=== PATIENT | female | born 1985 | race Caucasian/White ===

== ENCOUNTER 2016-08-09 10:06 | Outpatient (CLI) | payer BC, OTHER | END 2016-08-09 10:07 | disposition home or self-care (01) | DX: Z36 Encounter for antenatal screening of mother (principal) ==

== ENCOUNTER 2016-09-14 10:54 | Outpatient (CLI) | payer SELFPAY | END 2016-09-14 10:55 | disposition home or self-care (01) | DX: Z36 Encounter for antenatal screening of mother (principal) ==

== ENCOUNTER 2016-11-02 12:25 | Outpatient (CLI) | payer BC, MEDICAID ==
--- NOTE | 2016-11-02 16:04 | Ultrasound Report ---
OB ULTRASOUND: 11/02/2016 CLINICAL INDICATION: anatomy. TECHNIQUE: Real-time scanning was performed with group sales representative static images obtained. LAST MENSTRUAL PERIOD 06/11/2016 Clinical Age 20 weeks 4 days US Age 19 weeks 6 days EFW Hadlock 328 g EFW% Hadlock 20% Heart Rate 148 bpm EDC 03/18/2017 US EDC 03/23/2017 BPD Hadlock 19 weeks 1 day; Mean mm 43.6 HC Hadlock 19 weeks 6 days; Mean mm 173.8 AC Hadlock 19 weeks 6 days; Mean mm 145.4 FL Hadlock 20 weeks 2 days; Mean mm 33.1 Presentation moving Placental Location posterior low Cervical Length 4.8 cm Amniotic Fluid 13.3 cm FINDINGS: There is a single viable intrauterine gestation, in variable position. heart rate is 148 BPM. The placenta is posterior, without evidence of previa. Amniotic fluid volume is normal, with an HELADIO of 13.3. By size, the fetus measures 19.9 weeks (20.6 weeks by LMP). The following anatomic structures were visualized and appear normal: The intracranial contents, including the ventricles and posterior fossa; the lips and orbits; the spine; the heart, including 4 chamber view and outflow tracts, and diaphragm; the abdominal contents, including the stomach, the bilateral kidneys, and urinary bladder, as well as a normal 3 vessel cord insertion; 4 limbs. No free fluid or adnexal lesion is appreciated. IMPRESSION: SINGLE VIABLE INTRAUTERINE GESTATION, WITH SIZE IN KEEPING WITH LMP DATING. NORMAL ANATOMIC SURVEY. MTDD
== END 2016-11-02 12:26 | disposition home or self-care (01) ==
LOC: DI 12:25
PROVIDERS: ATTEND Obstetrics & Gynecology
DX: Z34.82 Encounter for supervision of other normal pregnancy, second trimester (principal)
CPT/HCPCS: 76811

== ENCOUNTER 2016-11-25 11:35 | Emergency (ER) | payer BC, MEDICAID ==
[2016-11-25 11:53] VITALS: BP 97/66
--- NOTE | 2016-11-25 14:02 | ED Physician Documentation ---
PD HPI URI - Stated complaint Stated Complaint: COUGH - Chief complaint Chief Complaint: Resp - History obtained from History obtained from: Patient, Family - History of Present Illness Timing - onset: How many weeks ago (2) Timing duration: Weeks (2) Timing details: Gradual onset, Still present, Waxing and waning Associated symptoms: Nasal congestion, Rhinorrhea, Dry cough, Dyspnea Contributing factors: Other (22 wks ) Improves by: Medication Worsened by: Activity Similar symptoms before: Diagnosis (URI and seasonal allergic rhinitis) Recently seen: Not recently seen - Additional information Additional information: 31-year-old female with a history of seasonal allergic rhinitis is 22 weeks and has developed a cough with coughing paroxysms that are bad enough that she is wetting herself. She has been using Flonase intermittently as well as Elizabeth and Zyrtec. She has not had fever and she has not had color to her phlegm. Review of Systems Constitutional: denies: Fever, Chills Eyes: denies: Decreased vision Ears: denies: Ear pain Nose: reports: Rhinorrhea / runny nose, Congestion, Sinus pressure / pain Throat: reports: Sore throat Cardiac: denies: Chest pain / pressure, Palpitations Respiratory: reports: Dyspnea, Cough GI: reports: Vomiting (post tussive). denies: Nausea : reports: Incontinent (post tussive) Skin: denies: Rash Musculoskeletal: denies: Neck pain, Back pain Neurologic: denies: Generalized weakness, Focal weakness, Numbness PD PAST MEDICAL HISTORY - Past Medical History Past Medical History: No Cardiovascular: None Respiratory: None Neuro: None Endocrine/Autoimmune: None GI: None LITERACY TEACHER: None : None HEENT: None Psych: None Musculoskeletal: Other Derm: None - Past Surgical History Past Surgical History: Yes HEENT: Tonsil/Adenoidectomy - Present Medications Home Medications: Ambulatory Orders Medication Instructions Recorded Confirmed Amox/Clav 875/125 [Augmentin] 1 each PO Q12H #20 tablet 11/25/16 Benzonatate [Tessalon] 100 - 200 mg PO TID PRN #20 capsule 11/25/16 - Allergies Allergies/Adverse Reactions: Allergies Allergy/AdvReac Type Severity Reaction Status Date / Time erythromycin base Allergy Hives Verified 11/25/16 11:52 [Erythromycin Base] - Social History Does the pt smoke?: No Smoking Status: Never smoker Does the pt drink ETOH?: No Does the pt have substance abuse?: No - Immunizations Immunizations are current?: Yes - POLST Patient has POLST: No PD ED PE NORMAL - Vitals Vital signs reviewed: Yes (normal ) - General General: Alert and oriented X 3, No acute distress, Well developed/nourished, Other (The patient does have the erythema under the nose consistent with the allergic salute. ) - HEENT HEENT: Atraumatic, PERRL, EOMI, Moist mucous membranes, Pharynx benign, Dentition benign, Other (The right TM is mildly inflamed along the umbo and the left is clear. ) - Neck Neck: Supple, no meningeal sign, No bony TTP - Cardiac Cardiac: RRR, No murmur - Respiratory Respiratory: No respiratory distress, Clear bilaterally - Abdomen Abdomen: Soft, Non tender - Back Back: No CVA TTP, No spinal TTP - Derm Derm: Normal color, Warm and dry, No rash - Extremities Extremities: No deformity, No edema - Neuro Neuro: Alert and oriented X 3, No motor deficit, No sensory deficit, Normal speech - Psych Psych: Normal mood, Normal affect Results - Vitals Vitals: Vital Signs - 24 hr 11/25/16 11:50 Temperature 36.5 C Heart Rate 74 Respiratory 18 Rate Blood Pressure 97/66 O2 Saturation 94 Oxygen O2 Source Room air Procedures - Bedside sono Bedside sono by EMP: With use of bedside ultrasound the fetus is imaged and shows a viable fetus at 23 weeks with a heart rate of 156. PD MEDICAL DECISION MAKING - ED course Complexity details: reviewed old records, considered differential, d/w patient, d/w family ED course: 31-year-old female 22 weeks has had coughing paroxysms hard enough to cause incontinence and posttussive vomiting. She does have a long history of seasonal allergic rhinitis and she is treating herself with both antihistamine and nasal steroid she is underdosing the nasal steroid as she has previously had evidence of epistaxis. She is getting inadequate relief with the use of her medications and she appears to have a mild otitis. Here in the emergency department she is given 10 mg of dexamethasone orally we will put her on some azithromycin I discussed with her washing pollen off of her face and out of her nose as well as using her Flonase twice per day until her symptoms are controlled and can to continue to use her Elizabeth I have suggested the use of 12 hours Elizabeth versus 24 hour. For the coughing paroxysms himself which I believe are her greatest risk I have prescribed Tessalon as well. Departure - Departure Disposition: 01 Home, Self Care Clinical Impression: Seasonal allergic rhinitis Qualifiers: Allergic rhinitis trigger: pollen Qualified Code(s): J30.1 - Allergic rhinitis due to pollen Otitis media Qualifiers: Otitis media type: suppurative Laterality: right Chronicity: acute Recurrence: not specified as recurrent Spontaneous tympanic membrane rupture: without spontaneous rupture Qualified Code(s): H66.001 - Acute suppurative otitis media without spontaneous rupture of ear drum, right ear Condition: Stable Instructions: ED Ear Infec Wait See Abx Tx Ch, ED Allergy Seasonal Follow-Up: Laura Gong PA-C [Primary Care Provider] - Prescriptions: Amox/Clav 875/125 [Augmentin] 1 each PO Q12H #20 tablet Benzonatate [Tessalon] 100 - 200 mg PO TID PRN #20 capsule PRN Reason: Cough
[2016-11-25] MEDS ORDERED: DEXAMETHASONE 10 MG/ML VIAL PO STA (14:14)
[2016-11-25] MEDS ORDERED: DEXAMETHASONE 10 MG/ML VIAL ONE (14:19)
== END 2016-11-25 14:24 | disposition home or self-care (01) ==
LOC: ED 11:35
DX: O99.512 Diseases of the respiratory system complicating pregnancy, second trimester (principal); J30.1 Allergic rhinitis due to pollen; H66.001 Acute suppurative otitis media without spontaneous rupture of ear drum, right ear; Z3A.22 22 weeks gestation of pregnancy
CPT/HCPCS: 99283

== ENCOUNTER 2016-12-29 17:45 | Emergency (ER) | payer BC, MEDICAID ==
--- NOTE | 2016-12-29 18:13 | ED Physician Documentation ---
PD HPI LOWER EXT INJURY - Stated complaint Stated Complaint: L FOOT INJ - Chief complaint Chief Complaint: Ext Problem - History of Present Illness PD HPI LOW EXT INJURY LOCATION: Left, Foot Type of injury: Crush (dropped heavy item on it) Where injury occurred: Home Timing - onset: Today Worsened by: Moving Associated symptoms: No: Weakness, Numbness, Tingling - Additional information Additional information: She is , pos FM, no cramping/bleeding. Review of Systems Constitutional: denies: Fever, Chills Nose: denies: Rhinorrhea / runny nose, Congestion Cardiac: denies: Chest pain / pressure, Palpitations Respiratory: denies: Dyspnea, Cough PD PAST MEDICAL HISTORY - Past Medical History Past Medical History: No Cardiovascular: None Respiratory: None Neuro: None Endocrine/Autoimmune: None GI: None RECORDER OF DEEDS: None : None HEENT: None Psych: None Musculoskeletal: Other Derm: None - Past Surgical History Past Surgical History: Yes HEENT: Tonsil/Adenoidectomy - Present Medications Home Medications: Ambulatory Orders Medication Instructions Recorded Confirmed No Known Home Medications [No 12/29/16 12/29/16 Known Home Medications] - Allergies Allergies/Adverse Reactions: Allergies Allergy/AdvReac Type Severity Reaction Status Date / Time erythromycin base Allergy Hives Verified 12/29/16 17:50 [Erythromycin Base] - Social History Does the pt smoke?: No Smoking Status: Never smoker Does the pt drink ETOH?: No Does the pt have substance abuse?: No - Immunizations Immunizations are current?: Yes - POLST Patient has POLST: No PD ED PE NORMAL - Vitals Vital signs reviewed: Yes - General General: Alert and oriented X 3, No acute distress - Abdomen Abdomen: Non tender, Other (Gravid) - Extremities Extremities: Other (TTP Lateral foot with some ecchymosis. Good ROM.) - Neuro Neuro: Alert and oriented X 3, Normal speech Results - Vitals Vitals: Vital Signs - 24 hr 12/29/16 12/29/16 17:48 19:14 Temperature 36.0 C L Heart Rate 99 78 Respiratory 18 15 Rate Blood Pressure 107/70 108/60 O2 Saturation 100 99 Oxygen O2 Source Room air - Rads (name of study) L foot 3v Radiology: EMP read contemporaneously (NAD) Departure - Departure Disposition: 01 Home, Self Care Clinical Impression: Contusion of left foot Qualifiers: Encounter type: initial encounter Qualified Code(s): S90.32XA - Contusion of left foot, initial encounter Condition: Good Record reviewed to determine appropriate education?: Yes Instructions: ED Contusion Lower Extr Ch Comments: Recheck with your physician if not improved in the week. Discharge Date/Time: 12/29/16 19:14
--- NOTE | 2016-12-29 18:57 | XRAY Preliminary Report ---
Exam: XR Foot 3 View LT IMPRESSION: Normal foot radiography. [facility] SITE ID: [id number]
--- NOTE | 2016-12-29 18:59 | XRAY Report ---
EXAM: LEFT FOOT RADIOGRAPHY EXAM DATE: 12/29/2016 06:35 PM. CLINICAL HISTORY: -shield abd. Foot inj. COMPARISON: None. TECHNIQUE: 3 views. FINDINGS: Bones: Normal. No fractures or bone lesions. Joints: Normal. No subluxations. Soft Tissues: Normal. No soft tissue swelling. IMPRESSION: Normal foot radiography. [facility] Referring Provider Line: [phone] SITE ID: [id number]
[2016-12-29 19:15] VITALS: BP 108/60
== END 2016-12-29 19:14 | disposition home or self-care (01) ==
LOC: ED 17:45
DX: S90.32XA Contusion of left foot, initial encounter (principal); W20.8XXA Other cause of strike by thrown, projected or falling object, initial encounter; Y92.019 Unspecified place in single-family (private) house as the place of occurrence of the external cause; Z34.90 Encounter for supervision of normal pregnancy, unspecified, unspecified trimester
CPT/HCPCS: 99283

== ENCOUNTER 2017-01-08 07:24 | Outpatient (CLI) | payer BC, MEDICAID ==
[2017-01-08 10:07] LABS: HCT - HEMATOCRIT 34.1 % (37.0-47.0); HGB - HEMOGLOBIN 11.6 g/dL (12.0-16.0); MEAN CORPUSCULAR HEMOGLOBIN 31.2 pg (27.0-31.0); MEAN CORPUSCULAR HGB CONC 34.1 g/dL (32.0-36.0); MEAN CORPUSCULAR VOLUME 91.4 fL (81.0-99.0); RED BLOOD COUNT 3.73 10^6/uL (4.20-5.40); RED CELL DISTRIBUTION WIDTH 12.6 % (12.0-15.0); WHITE BLOOD COUNT 10.8 x10^3/uL (4.8-10.8)
--- NOTE | 2017-01-08 10:07 | Ultrasound Report ---
OB ULTRASOUND FOLLOWUP: 01/08/2017 CLINICAL HISTORY: Size/date discrepancy. COMPARISON: 11/02/2016 TECHNIQUE: Real-time scanning was performed with telesales representative static images obtained. LAST MENSTRUAL PERIOD 06/16/2016 Clinical Age 29 weeks 3 days US Age 29 weeks 2 days EFW Hadlock 1370 g EFW% Hadlock 33% Heart Rate 140 bpm EDC 03/23/2017 US EDC 03/24/2017 BPD Hadlock 28 weeks 1 day; Mean mm 70.1 HC Hadlock 29 weeks 6 days; Mean mm 273.0 AC Hadlock 29 weeks 1 day; Mean mm 249.0 FL Hadlock 29 weeks 5 days; Mean mm 56.5 Presentation cephalic Placental Location posterior Cervical Length --- Amniotic Fluid 11.9 cm FINDINGS: The placenta is posterior. There is no previa. The amniotic fluid is subjectively and objectively normal. IMPRESSION: 1. LIVE INTRAUTERINE FETUS IN CEPHALIC PRESENTATION. THE GESTATIONAL AGE BASED ON AN AVERAGE OF TODAY'S MEASUREMENTS IS 29 WEEKS 2 DAYS. THIS IS CONCORDANT WITH THE GESTATIONAL AGE BASED ON PRIOR ULTRASOUNDS AND LMP. 2. NORMAL AMNIOTIC FLUID. POSTERIOR PLACENTA. MTDD
== END 2017-01-08 07:25 | disposition home or self-care (01) ==
LOC: DI 07:24
PROVIDERS: ATTEND Obstetrics & Gynecology
DX: O26.843 Uterine size-date discrepancy, third trimester (principal); Z36 Encounter for antenatal screening of mother
CPT/HCPCS: 36415; 76816; 82950; 86850

== ENCOUNTER 2017-01-18 14:06 | Outpatient (CLI) | payer BC, MEDICAID ==
[2017-01-18 14:18] VITALS: BP 118/74
[2017-01-18 14:56] LABS: BILIRUBIN,URINE NEGATIVE (NEGATIVE); PH,URINE 6.5 PH (5.0-7.5)
[2017-01-18 14:59] LABS: UA CHARGE (STRIP ONLY) YES; UR CULTURE IF IND NOT INDICATED
== END 2017-01-18 16:25 | disposition home or self-care (01) ==
LOC: WFO 14:06 → FBP 14:08 → WFO 16:25
PROVIDERS: ATTEND Obstetrics & Gynecology
DX: O47.03 False labor before 37 completed weeks of gestation, third trimester (principal); Z3A.31 31 weeks gestation of pregnancy
CPT/HCPCS: 81001; 81003; 82731; 87086; 99213

== ENCOUNTER 2017-01-22 08:09 | Outpatient (CLI) | payer BC, MEDICAID ==
[2017-01-22 09:35] LABS: GTT GLUCOSE,FASTING 96 mg/dL (70-100)
== END 2017-01-22 08:10 | disposition home or self-care (01) ==
LOC: LAB 08:09
PROVIDERS: ATTEND Obstetrics & Gynecology
DX: Z36 Encounter for antenatal screening of mother (principal)
CPT/HCPCS: 36415; 82951

== ENCOUNTER 2017-02-10 21:18 | Outpatient (CLI) | payer BC, MEDICAID ==
[2017-02-10] MEDS ORDERED: HYDROmorphone 1 MG/ML CARPUJECT ONE (21:44)
[2017-02-10] MEDS ORDERED: LACTATED RINGERS 1,000 ML IV ONE ×3 (21:45→23:04)
[2017-02-10] MEDS ORDERED: SODIUM CHLORIDE FLUSH 0.9% 10 ML SYRINGE IVP ONE (21:46)
[2017-02-10 21:56] VITALS: BP 124/77
[2017-02-10 22:25] LABS: BILIRUBIN,URINE NEGATIVE (NEGATIVE); PH,URINE 5.5 PH (5.0-7.5)
[2017-02-10 22:28] LABS: BASOPHILS % (AUTO) 0.2 %; EOSINOPHILS # (AUTO) 0.1 10^3/uL (0.0-0.7); EOSINOPHILS % (AUTO) 0.9 %; HCT - HEMATOCRIT 29.8 % (37.0-47.0); HGB - HEMOGLOBIN 10.2 g/dL (12.0-16.0); LYMPHOCYTES # (AUTO) 1.7 10^3/uL (1.5-3.5); MEAN CORPUSCULAR HEMOGLOBIN 30.2 pg (27.0-31.0); MEAN CORPUSCULAR HGB CONC 34.1 g/dL (32.0-36.0); MEAN CORPUSCULAR VOLUME 88.6 fL (81.0-99.0); MEAN PLATELET VOLUME 7.1 fL (7.9-10.8); MONOCYTES # (AUTO) 1.1 10^3/uL (0.0-1.0); MONOCYTES % (AUTO) 8.2 %; NEUTROPHILS % (AUTO) 77.7 %; NUCLEATED RED BLOOD CELLS AUTO 0.1 /100WBC; RED BLOOD COUNT 3.37 10^6/uL (4.20-5.40); RED CELL DISTRIBUTION WIDTH 12.3 % (12.0-15.0); UNCORRECTED WHITE BLOOD COUNT 12.9 x10^3/uL; WHITE BLOOD COUNT 12.9 x10^3/uL (4.8-10.8)
[2017-02-10] MEDS ORDERED: HYDROmorphone 1 MG/ML CARPUJECT IVP SCH ×3 (22:37→23:00)
[2017-02-10 22:47] LABS: ALBUMIN/GLOBULIN RATIO 0.9 (1.0-2.2); BILIRUBIN,TOTAL 0.5 mg/dL (0.2-1.0); CREATININE 0.7 mg/dL (0.4-1.0); POTASSIUM 3.4 mmol/L (3.5-5.0); TOTAL PROTEIN 5.9 g/dL (6.7-8.2)
[2017-02-10 22:50] LABS: UR CULTURE IF IND NOT INDICATED
--- NOTE | 2017-02-11 00:56 | Ultrasound Preliminary Report ---
Exam: US Retroperitoneal IMPRESSION: 1. Moderate to severe right hydronephrosis. 2. Mild to moderate left hydronephrosis. [facility] SITE ID: [id number]
--- NOTE | 2017-02-11 00:58 | Ultrasound Report ---
EXAM: RENAL ULTRASOUND EXAM DATE: 02/11/2017 12:40 AM. CLINICAL HISTORY: Right flank pain. History of extrarenal pelvis. 35 weeks . COMPARISON: CT abdomen pelvis 12/08/2014. TECHNIQUE: Real-time scanning was performed with static images obtained. FINDINGS: Right Kidney: 13.3 x 6.7 x 6.9 cm.Moderate to severe right hydronephrosis. Renal cortical thickness a nd echotexture appear within normal limits. No renal calculi are seen. Left Kidney: 10.9 x 6.9 x 5.7 cm. Mild to moderate left hydronephrosis. Renal cortical thickness and echotexture appear within normal limits. No renal calculi are seen. Bladder: Bilateral jets seen. The prevoid bladder volume was 414.6 cc, very distended. The postvoid b ladder volume was 7.6 cc. IMPRESSION: 1. Moderate to severe right hydronephrosis. 2. Mild to moderate left hydronephrosis. [facility] Referring Provider Line: [phone] SITE ID: [id number]
--- NOTE | 2017-02-11 02:11 | HISTORY & PHYSICAL EXAMINATION ---
DATE OF ADMISSION: 02/10/2017 DIAGNOSES: 1. A 35 week 0 day gestation. 2. Right flank pain. 3. Possible history of urolithiasis The patient is a 31-year-old 3, para 2-0-0-2 at 35 weeks 0 days gestation, who notes onset of right flank pain and spasm approximately 4 hours ago. The pain is sharp and graded at 7-8/10. She has not done anything to strain her back today. She has no symptoms of UTI or fever. Two years ago she was noted to have a similar rapid onset flank pain that was suspected by CT scan was suspected to be a past urolith. She does not note any recent hematuria. The patient does not sense uterine contractions thought there are some [place] and irritability noted. She has no suspicion leakage of fluid and reports no pelvic pressure. There are no signs or symptoms of preeclampsia. PAST MEDICAL HISTORY: No chronic disease history. Possible renal lithiasis noted above. PAST SURGICAL HISTORY: Tonsillectomy in childhood. ALLERGIES: ERYTHROMYCIN CAUSES BLISTERS. MEDICATIONS: 1. vitamins. 2. Iron. PHYSICAL EXAMINATION: GENERAL: The patient lying quietly in the stretcher, minimizes movement, obviously uncomfortable. Alert talkative, cooperative. VITAL SIGNS: Temperature 97.7, blood pressure 124/70, respirations 20, pulse 97 , saturation 100. HEENT: Supple neck. Moist mucous membranes. EOMI, nonicteric sclerae. ABDOMEN: Nondistended. No hepatosplenomegaly. No true CVA tenderness or bladder tenderness. Uterus appropriate size for roughly 35 weeks, normal resting tone. movement found. External monitor baseline 140s, moderate variability, reactive, no decels cat 1. EXTERNAL GENITALIA: No lesions. VAGINA: No blood or discharge. CERVIX: 1 cm, 20% effaced, -2 posterior. EXTREMITIES: Nonedematous. LABS: White count 12.9, hemoglobin 10.2. Slight neutrophilia. Sodium 136, potassium 3.4, chloride 105, CO2 of 23, creatinine 0.7, BUN 7, GFR 98, glucose 95. Liver enzymes normal. Urine cloudy, occult blood, small amount of leuk esterase. ASSESSMENT: The patient carries presumptive history of urolithiasis, which corresponds to probable ureter colic on the right side. There is occult blood in her urine and leukocyte esterase noted indicative of possible infection. Urine should be reflexively cultured. PLAN: 1. First, pain relief with Dilaudid 0.25, followed by 0.5 if not effective. 2. IV fluid bolus. 3. We will observe patient and if she is comfortable will allow her to go home with Macrobid 100 b.i.d. for a 7-day course and [place] 325 mg 1-2 tablets every 4 hours p.r.n. pain. The patient is to come early this week for reevaluation in the office. ADDENDUM: US reveals mod to severe R hydronephrosis, mild L hydronephrosis, + bilateral jets. Patient discharged home w [place] 325/5 & Macrobid. To be seen within 1 week. JOB #: [id number] EXT JOB #:[id number] [email or web address]
== END 2017-02-11 01:00 | disposition home or self-care (01) ==
LOC: WFO 21:18 → FBP 21:24 → WFO 02-11 01:00
PROVIDERS: ATTEND Obstetrics & Gynecology
DX: O99.89 Other specified diseases and conditions complicating pregnancy, childbirth and the puerperium (principal); N13.30 Unspecified hydronephrosis; Z3A.35 35 weeks gestation of pregnancy
CPT/HCPCS: 36415; 76770; 80053; 81001; 85025; 96361; 96374; 96376; 99213; J1170; J7120; 87086

== ENCOUNTER 2017-02-18 08:00 | Outpatient (CLI) | payer BC, MEDICAID | END 2017-02-18 08:01 | disposition home or self-care (01) | LOC: LAB.R 08:00 | PROVIDERS: ATTEND Obstetrics & Gynecology | DX: Z36 Encounter for antenatal screening of mother (principal) | CPT/HCPCS: 87081 ==

== ENCOUNTER 2017-02-22 10:29 | Outpatient (CLI) | payer BC, MEDICAID ==
--- NOTE | 2017-02-26 14:55 | Ultrasound Report ---
OB FOLLOWUP: 02/22/2017 CLINICAL INDICATION: Lagging fundal height. TECHNIQUE: Real-time scanning was performed with outreach representative static images obtained. LAST MENSTRUAL PERIOD 06/16/2016 Clinical Age 35 weeks 6 days US Age 34 weeks 5 days EFW Hadlock 2660 grams EFW% Hadlock 37.4 Heart Rate 133 EDC 03/23/2017 US EDC 03/31/2017 BPD Hadlock 32 weeks 0 days; Mean mm 79.8 HC Hadlock 35 weeks 2 days; Mean mm 314.7 AC Hadlock 36 weeks 5 days; Mean mm 327.3 FL Hadlock 34 weeks 1 day; Mean mm 66.4 Presentation cephalic Placental Location fundal post Cervical Length 3.5 cm Amniotic Fluid 10.2 cm FINDINGS: There is a single viable intrauterine gestation, in cephalic presentation. heart rate is 133 BPM. The placenta is posterior, without evidence of previa. Amniotic fluid volume is normal, with an HELADIO of 10.2. By size, the fetus measures 34 weeks 5 days. Estimated weight by Hadlock method is 2660 grams. No free fluid or adnexal lesion is appreciated. IMPRESSION: SINGLE VIABLE INTRAUTERINE GESTATION, MEASURING 34 WEEKS 5 DAYS BY SIZE (35 WEEKS 6 DAYS BY LMP DATING). NORMAL AMNIOTIC FLUID VOLUME. MTDD
== END 2017-02-22 10:30 | disposition home or self-care (01) ==
LOC: DI 10:29
PROVIDERS: ATTEND Obstetrics & Gynecology
DX: Z36 Encounter for antenatal screening of mother (principal)
CPT/HCPCS: 76816

== ENCOUNTER 2017-02-27 12:30 | Outpatient (CLI) | payer BC, MEDICAID ==
[2017-02-27 13:01] VITALS: BP 112/68
[2017-02-27 13:03] LABS: BILIRUBIN,URINE NEGATIVE (NEGATIVE)
[2017-02-27 13:10] LABS: UR CULTURE IF IND INDICATED
[2017-02-27] MEDS ORDERED: AMOXICILLIN 250 MG CAPSULE PO ONE (13:31)
[2017-02-27] MEDS ORDERED: AMOXICILLIN 250 MG CAPSULE PO SCH (18:00)
== END 2017-02-27 13:39 | disposition home or self-care (01) ==
LOC: WFO 12:30 → FBP 12:31 → WFO 13:39
PROVIDERS: ATTEND Obstetrics & Gynecology
DX: O23.43 Unspecified infection of urinary tract in pregnancy, third trimester (principal); Z3A.37 37 weeks gestation of pregnancy
CPT/HCPCS: 81001; 87086; 99213; A9270

== ENCOUNTER 2017-03-10 22:33 | Outpatient (CLI) | payer BC, MEDICAID ==
[2017-03-10 23:00] VITALS: BP 103/63
[2017-03-10 23:22] LABS: BILIRUBIN,URINE NEGATIVE (NEGATIVE); PH,URINE 6.5 PH (5.0-7.5)
[2017-03-10 23:31] LABS: UR CULTURE IF IND INDICATED
== END 2017-03-11 00:05 | disposition home or self-care (01) ==
LOC: WFO 22:33 → FBP 22:34 → WFO 03-11 00:05
PROVIDERS: ATTEND Obstetrics & Gynecology
DX: O36.8130 Decreased fetal movements, third trimester, not applicable or unspecified (principal); Z3A.39 39 weeks gestation of pregnancy
CPT/HCPCS: 59025; 81001; 87086; 99213

== ENCOUNTER 2017-03-18 12:00 | Inpatient (IN) | payer BC, MEDICAID ==
[2017-03-18 13:00] LABS: BASOPHILS # (AUTO) 0.1 10^3/uL (0.0-0.1); BASOPHILS % (AUTO) 0.8 %; EOSINOPHILS # (AUTO) 0.1 10^3/uL (0.0-0.7); EOSINOPHILS % (AUTO) 0.6 %; HCT - HEMATOCRIT 34.5 % (37.0-47.0); HGB - HEMOGLOBIN 11.6 g/dL (12.0-16.0); LYMPHOCYTES # (AUTO) 2.3 10^3/uL (1.5-3.5); LYMPHOCYTES % (AUTO) 18.3 %; MEAN CORPUSCULAR HEMOGLOBIN 30.1 pg (27.0-31.0); MEAN CORPUSCULAR HGB CONC 33.5 g/dL (32.0-36.0); MEAN CORPUSCULAR VOLUME 89.8 fL (81.0-99.0); MEAN PLATELET VOLUME 8.6 fL (7.9-10.8); MONOCYTES # (AUTO) 0.8 10^3/uL (0.0-1.0); MONOCYTES % (AUTO) 6.4 %; NEUTROPHILS # (AUTO) 9.2 10^3/uL (1.5-6.6); NEUTROPHILS % (AUTO) 73.9 %; RED BLOOD COUNT 3.85 10^6/uL (4.20-5.40); RED CELL DISTRIBUTION WIDTH 13.2 % (12.0-15.0); UNCORRECTED WHITE BLOOD COUNT 12.4 x10^3/uL; WHITE BLOOD COUNT 12.4 x10^3/uL (4.8-10.8)
--- NOTE | 2017-03-18 13:07 | HISTORY & PHYSICAL EXAMINATION ---
DATE OF ADMISSION: 03/18/2017 DIAGNOSES: 1. Term , in labor. 2. History of precipitous labors. HISTORY: The patient is a 31-year-old 5, para 2-0-0-2 woman at 40 weeks' gestation, who presented in the office with significant cervical change, moving from 4 cm to 8 cm. There was no evidence or ruptured membranes. She has no fevers, chills, or recent illness. There are no signs or symptoms of preeclampsia. Recently, she had a labor of 2 hours. LMP on 11 June, yielding an EDC of 18 March. 8-week ultrasound yielded an EDC of 21 March and therefore consistent with dates. Sujata norman EDC is 18 March. Basic labs: Blood type B-positive, antibody screen negative, rubella immune, RPR negative, hepatitis B surface antigen negative, HIV negative. Urine culture negative. Glucose challe nge test 157; subsequent 3-hour GTT normal. GBS negative. PAST MEDICAL HISTORY: 18 months ago, urolithiasis. PAST SURGICAL HISTORY: Tonsillectomy in 1992. ALLERGIES: ERYTHROMYCIN. MEDICATIONS: vitamins and iron. FAMILY HISTORY: No inheritable diseases or aneuploidy. Family history of diabetes. 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 No drug, tobacco, or alcohol use. REVIEW OF SYSTEMS: CONSTITUTIONAL: Negative. HEENT: Negative. LUNGS: Negative. CARDIAC: Negative. GASTROINTESTINAL: Negative. GENITOURINARY: Negative. SKIN: Negative. NEUROLOGICAL: Negative. PHYSICAL EXAMINATION: GENERAL: The patient is comfortable in bed. Alert and oriented. VITAL SIGNS: Afebrile. Blood pressure 100/60. HEENT: EOMI. Nonicteric sclerae. NECK: Supple. No goiter. LUNGS: Clear. CARDIAC: Regular. No murmur. No gallop. ABDOMEN: Soft and nontender. Uterus: Appropriate size. Vertex. Faint contractions every 4-5 minutes. EXTERNAL GENITALIA: No lesions. CERVIX: 6-7 cm, 0 station, 100%. Bag of kaur intact. EXTREMITIES: No edema. NEUROLOGIC: Grossly intact. Patellar reflexes 2+ and equal. LABORATORY: Admission labs pending. ASSESSMENT: This is a term , who was made significant progress since her last exam, which wa s on the 11 of March. She has not ruptured her membranes, but I am certain once this starts, it s hould induce labor. Thus far, heart tracing is normal. Clinical impression is that the pelvis i s adequate for a 7-1/2 to 8 pound baby. PLAN: Admit. Rupture membranes. Anticipate vaginal delivery. JOB #: [id number] EXT JOB #:[id number]
[2017-03-18] MEDS: LACTATED RINGERS 1,000 ML IV SCH (15:59)
[2017-03-18] MEDS ORDERED: oxyCODONE 5 MG TABLET PO PRN (17:07)
[2017-03-18] MEDS ORDERED: WITCH HAZEL/GLYCERIN 1 EACH MED..PAD TOP PRN (17:07)
[2017-03-18] MEDS ORDERED: OXYTOCIN/SODIUM CHLORIDE 250 ML IV ONE (17:07)
[2017-03-18] MEDS ORDERED: HYDROCORTISONE 1% CREAM 28 GM TUBE PR PRN (17:07)
[2017-03-18] MEDS ORDERED: LIDOCAINE 1% 50 ML MDV SUBQ ONE (17:07)
[2017-03-18] MEDS ORDERED: HYDROCORTISONE/PRAMOXINE 10 GM PR PRN (17:07)
[2017-03-18] MEDS ORDERED: diphenhydrAMINE 25 MG CAPSULE PO PRN (17:07)
[2017-03-18] MEDS ORDERED: ONDANSETRON ODT 4 MG TABLET TL PRN (17:07)
--- NOTE | 2017-03-18 17:14 | DELIVERY NOTE ---
Delivery Note - Labor Labor: positive: Spontaneous - Delivery Method Delivery Method: positive: Spontaneous vaginal delivery - Presentation Presentation: positive: Vertex, ROP - right occiput posterior - Nuchal Cord Nuchal Cord: positive: Present (X1) - Anesthetic Anesthetic: positive: Lidocaine - 1% plain Volume: positive: Other (30ml) - Amniotic Fluid Description Amniotic Fluid Description: positive: Clear - Episiotomy Type Episiotomy Type: positive: None - Laceration Laceration: positive: 2nd degree - Suture Suture Type: positive: Vicryl Suture Size: positive: 3-0 - Delivery Outcome Delivery Outcome: positive: Livebirth - [place]: positive: Placed in direct skin contact with mother, Bulb syringe, Stimulated sex: positive: Female (Apgars 8/9) - Cord Cord: positive: 2 vessels - Placenta Placenta: positive: Intact - Estimated Blood Loss Estimated Blood Loss (in cc): 300 - Delivery Comments (Free Text/Narrative) Delivery Comments (Free Text/Narrative): Pt reached complete at 1625. Because of Hx of rapid deliveries setup vas commenced before she stared to push. 10 min later at 1635 live female was delivered ROP over a second degree laceration. placenta followed complete at 1640. Second degree midline laceration was repaired with 3-0 vicril. EBL 300 ml.
[2017-03-18] MEDS: ACETAMINOPHEN 500 MG TABLET PO SCH (18:07)
[2017-03-18] MEDS: IBUPROFEN 600 MG TABLET PO SCH ×2 (18:08→23:19)
[2017-03-18] MEDS: DOCUSATE SODIUM 100 MG CAPSULE PO SCH (23:19)
[2017-03-19] MEDS: ACETAMINOPHEN 500 MG TABLET PO SCH ×3 (01:40→19:00)
[2017-03-19] MEDS ORDERED: SODIUM CHLORIDE FLUSH 0.9% 10 ML SYRINGE IVP ONE (04:50)
[2017-03-19] MEDS: IBUPROFEN 600 MG TABLET PO SCH ×2 (04:57→14:18)
[2017-03-19] MEDS: LACTATED RINGERS 1,000 ML IV SCH ×4 (07:57→14:19)
[2017-03-19] MEDS: DOCUSATE SODIUM 100 MG CAPSULE PO SCH (09:29)
--- NOTE | 2017-03-19 11:53 | PROVIDER PROGRESS NOTE ---
Subjective - Prog Note Date Prog Note Date: 03/19/17 Prog Note Time: 11:51 - Subjective Pt reports feeling: Improved (Pt states that her pain is 0/10. breast feeding. Desires to go home. Offered pain medication. will use Motrin home supply. Discussed contraception. Start Mor QD 2 weeks.) Objective - Vital Signs/Intake & Output Reviewed Vital Signs: Yes Vital Signs: Vital Signs x48h Temp Pulse Resp BP Pulse Ox 03/19/17 07:51 36.8 C 70 17 101/57 L 100 03/19/17 04:55 36.9 C 87 18 106/63 97 Intake & Output: Intake & Output 03/16/17 03/17/17 03/18/17 03/19/17 23:59 23:59 23:59 23:59 Intake Total 1250 Balance 1250 - Objective General Appearance: positive: No acute distress, Alert Respiratory: positive: Chest non-tender, No respiratory distress, Breath sounds nml Cardiovascular: positive: Regular rate & rhythm, No murmur Abdomen: positive: Non-tender, No organomegaly, Mass (U-2) Back: negative: CVA tenderness (R), CVA tenderness (L) Skin: positive: Color nml, No rash, Warm, Dry Extremities: negative: Calf tenderness, Bonny's sign/cords - Lab Results Fish Bones: 03/18/17 12:20 Other Labs: Lab Results x24hrs 03/18/17 Range/Units 12:20 WBC 12.4 H (4.8-10.8) x10^3/uL RBC 3.85 L (4.20-5.40) 10^6/uL Hgb 11.6 L (12.0-16.0) g/dL Hct 34.5 L (37.0-47.0) % MCV 89.8 (81.0-99.0) fL MCH 30.1 (27.0-31.0) pg MCHC 33.5 (32.0-36.0) g/dL RDW 13.2 (12.0-15.0) % Plt Count 283 (130-450) 10^3/uL MPV 8.6 (7.9-10.8) fL Neut # 9.2 H (1.5-6.6) 10^3/uL Lymph # 2.3 (1.5-3.5) 10^3/uL [place] # 0.8 (0.0-1.0) 10^3/uL Eos # 0.1 (0.0-0.7) 10^3/uL Baso # 0.1 (0.0-0.1) 10^3/uL Absolute Nucleated RBC 0.00 x10^3/uL Nucleated RBC % 0.0 /100WBC Assessment/Plan - Problem List (1) Vaginal delivery Impression: Pt is doing quite well following OP. will discharge today. Discharge meds: Mamta Ann. Pelvic rest 6 weeks. Breast feeding
--- NOTE | 2017-03-19 12:02 | Discharge Plan ---
Discharge Plan Disposition: 01 Home, Self Care Condition: Good Diet: Regular Activity Restrictions: Pelvic rest 6 weeks Shower Restrictions: No Driving Restrictions: No Weight Bearing: Full Weight No Smoking: If you smoke, Please STOP! Call for help. Follow-up with: Laura Gong PA-C [Primary Care Provider] -
--- NOTE | 2017-03-19 12:23 | DISCHARGE SUMMARY ---
DATE OF ADMISSION: 03/18/2017 DATE OF DISCHARGE: 03/19/2017 ADMITTING DIAGNOSES 1. Term cyesis. 2. Advanced cervical dilatation. DISCHARGE DIAGNOSES 1. Term cyesis. 2. Advanced cervical dilatation. 3. Delivery of live female , Apgars 8 and 9, occiput posterior. PROCEDURES 1. Artificial rupture of membranes. 2. Assisted vaginal delivery. PRESENTING HISTORY: The patient is a 31-year-old G5, P2 female who was 40 weeks ' at time of delivery. She was seen in the office at which time she was noted to be 8 cm. She was not ruptured at that time so for this reason she was sent to Labor and Delivery for delivery. She was noted to be B positive, antibody screen negative, rubella immune, RPR negative, hepatitis B negative, as well as HIV negative. Her 50 gram Glucola showed 157; however, a 3-hour GTT was noted to be normal, as well as group B strep being negative. LABORATORIES: CBC on admission showed a white count of 12.4, hemoglobin 11.6, hematocrit was 34.5, and platelets were noted to be 283. HOSPITAL COURSE: The patient was admitted, artificial rupture of membranes. She progressed to complete. She was noted to be right occiput posterior. She was rolled onto her left-hand side. She reached complete and started pushing. At that time, she was noted to be occiput posterior, but she pushed the infant out over about a 10-minute span. Her placenta soon followed, was noted to be intact. At time of delivery, she had a live female with Apgars 8 and 9, weight was 7 pounds 6 ounces. Post-delivery, both mother and infant have done well at this particular time. She is currently breast feeding. She is being discharged to home on Motrin home supply as well as Nor-QD to start taking 2 weeks . She has been instructed to watch breasts for areas of infection. She has been informed that is not adequate contraception. She is told to call the clinic should she develop chills, fevers , temperature greater than 100.4, foul-smelling discharge or a lot of pelvic pain. JOB #: [id number] EXT JOB #:[id number] REVISED - added [facility] date of 03/19/2017 on 03/20/2017 ulisses SÁNCHEZ
[2017-03-19 16:42] VITALS: BP 106/63
--- NOTE | 2017-03-19 19:03 | Labor Flowsheet ---
Labor Flowsheet Datetime Report Generated by CPN: 03/19/2017 19:03 Datetime: 03/19/2017 16:26 VITAL SIGNS NBP Sys/Marianna/Mean (mmHg): 104 : 59 : 69 Pulse: 86 LaborFlag: Labor Datetime: 03/19/2017 04:54 SpO2 (%): 97 Datetime: 03/18/2017 16:23 VAGINAL EXAM Dilatation (cm): 10.0 Effacement (%): 100 Station: 2 Datetime: 03/18/2017 16:19 UTERINE ACTIVITY Monitor Mode: External Frequency (min): 1-2 Quality: Strong Duration (sec): 40-70 Resting Tone (Palpate): Relaxed Contraction Comments: feels like pushing ASSESSMENT A Monitor Mode: External US FHR Baseline Rate : 120 Variability: Moderate 6-25 bpm Accelerations: 15X15 Decelerations: None Category: Category I Datetime: 03/18/2017 16:16 Exam by: Dr. Giem Datetime: 03/18/2017 16:00 PATIENT CARE IV/Blood Work: IV Infusing per Order Datetime: 03/18/2017 15:36 Cervix, Consistency: Soft Cervix, Position: Anterior Datetime: 03/18/2017 15:15 Stage of : Labor Monitor Interventions for UA: [place] Adjusted Datetime: 03/18/2017 15:01 Temperature (C): 36.8 Temperature Route: Oral Comments: possiblematernal heart rate, on hands n knees Datetime: 03/18/2017 14:18 I/O Interventions: Up to BR Datetime: 03/18/2017 14:15 Monitor Interventions for FHR: Ultrasound Adjusted Datetime: 03/18/2017 14:00 FHR Baseline Changes: No Baseline Change Datetime: 03/18/2017 13:13 Oxygen Method: Room Air Datetime: 03/18/2017 13:04 Patient Care Comments: LR@150ml/hr Datetime: 03/18/2017 12:50 Membrane Status: Ruptured Membranes Rupture Method: Artificial Amniotic Fluid Color: Clear Amniotic Fluid Amount: Moderate Amniotic Fluid Odor: Normal Membrane Comments: arom by Dr. Saldana Datetime: 03/18/2017 12:35 Provider Reviewed Strip: Yes Strip Reviewed by: Maggi Sloan COMMUNICATION Communication: Provider at Bedside Provider Notified (Name): Dr. Saldana Notification Reason: Labor Status
== END 2017-03-19 19:02 | disposition home or self-care (01) | DRG 775 ==
LOC: WFO 12:00 → FBP 12:03 → WFO 12:13 → FBP 12:14
PROVIDERS: ADMIT Obstetrics & Gynecology; ATTEND Obstetrics & Gynecology
PROC: 10E0XZZ Delivery of Products of Conception, External Approach (ICD-10-PCS; principal; 2017-03-18)
PROC: 0KQM0ZZ Repair Perineum Muscle, Open Approach (ICD-10-PCS; 2017-03-18)
PROC: 10907ZC Drainage of Amniotic Fluid, Therapeutic from Products of Conception, Via Natural or Artificial Opening (ICD-10-PCS; 2017-03-18)
DX: O70.1 Second degree perineal laceration during delivery (principal); Z37.0 Single live birth; O62.3 Precipitate labor; O69.81X0 Labor and delivery complicated by cord around neck, without compression, not applicable or unspecified; Z3A.40 40 weeks gestation of pregnancy
CPT/HCPCS: 85025

== ENCOUNTER 2017-10-10 21:20 | Emergency (ER) | payer BC, MEDICAID ==
[2017-10-10 21:27] VITALS: BP 109/70
--- NOTE | 2017-10-10 21:40 | ED Physician Documentation ---
PD HPI SKIN - Stated complaint Stated Complaint: BIT MY MOSQUITO/RED SKIN - Chief complaint Chief Complaint: Wound - History obtained from History obtained from: Patient - History of Present Illness Timing - onset: Yesterday Timing - details: Gradual onset Location: RUE Quality / character: Itchy, Discolored, Raised, Swelling Associated symptoms: No: Fever Contributing factors: Insect bite /sting Similar symptoms before: Has not had sx before Recently seen: Not recently seen - Additional information Additional information: bitten by a mosquito yesterday morning, c/o increasing swelling and redness around the area. 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 : None HEENT: None Psych: None Musculoskeletal: Other Derm: None - Past Surgical History Past Surgical History: Yes HEENT: Tonsil/Adenoidectomy - Present Medications Home Medications: Ambulatory Orders Medication Instructions Recorded Confirmed Vitamin [Trinatal Rx 1] 1 each PO DAILY 03/18/17 03/18/17 Sulfamethox/Trimeth 800/160 1 each PO BID #13 tablet 10/10/17 [Bactrim Ds 800/160] - Allergies Allergies/Adverse Reactions: Allergies Allergy/AdvReac Type Severity Reaction Status Date / Time erythromycin base Allergy Hives Verified 10/10/17 21:32 [Erythromycin Base] - Social History Does the pt smoke?: No Smoking Status: Never smoker Does the pt drink ETOH?: No Does the pt have substance abuse?: No - Immunizations Immunizations are current?: Yes - POLST Patient has POLST: No PD ED PE NORMAL - Vitals Vital signs reviewed: Yes - General General: Alert and oriented X 3, No acute distress, Well developed/nourished PD ED PE EXPANDED - Extremities SARAHI UE/Hands Visual: 1 - rash (confluent erythema with sharp margins; no discharge, no fluctuance, nontender), swelling Results - Vitals Vitals: Vital Signs - 24 hr 10/10/17 21:24 Temperature 36.5 C Heart Rate 70 Respiratory 15 Rate Blood Pressure 109/70 O2 Saturation 100 Oxygen O2 Source Room air PD MEDICAL DECISION MAKING - ED course Complexity details: considered differential, d/w patient Departure - Departure Disposition: 01 Home, Self Care Clinical Impression: Cellulitis of right forearm Condition: Good Instructions: ED Infec Skin Cellulitis Follow-Up: Laura Gong PA-C [Primary Care Provider] - (3-5 days if not improving) Prescriptions: Sulfamethox/Trimeth 800/160 [Bactrim Ds 800/160] 1 each PO BID #13 tablet Discharge Date/Time: 10/10/17 22:14
[2017-10-10] MEDS ORDERED: SULFAMETH/TRIMETH DS 800/160 MG TABLET PO STA (21:52)
== END 2017-10-10 22:14 | disposition home or self-care (01) ==
LOC: ED 21:20
DX: L03.113 Cellulitis of right upper limb (principal)
CPT/HCPCS: 99283; A9270

== ENCOUNTER 2018-07-20 20:07 | Emergency (ER) | payer BC, MEDICAID ==
[2018-07-20] MEDS ORDERED: HYDROcod/ACETAM 5/325 MG TABLET PO STA (20:30)
--- NOTE | 2018-07-20 20:32 | ED Physician Documentation ---
PD HPI LOWER EXT INJURY - Stated complaint Stated Complaint: RT FOOT INJ - Chief complaint Chief Complaint: Ext Problem - History obtained from History obtained from: Patient, Friend - History of Present Illness PD HPI LOW EXT INJURY LOCATION: Right Type of injury: Fall, Twist Where injury occurred: Home Timing - onset: Today Timing - duration: Minutes Timing - details: Abrupt onset, Still present Improved by: Rest, Immobilization Worsened by: Moving, Palpating Associated symptoms: Swelling. No: Weakness, Numbness, Tingling Contributing factors: No: Anticoagulated Similar symptoms before: Has not had sx before Recently seen: Not recently seen - Additional information Additional information: 33-year-old female was going down steps twisted her foot inverting it she felt and heard a pop and has pain and swelling over the proximal fifth metatarsal. Review of Systems Constitutional: denies: Fever Eyes: denies: Decreased vision Respiratory: denies: Cough GI: denies: Vomiting Musculoskeletal: reports: Extremity pain, Extremity swelling, Pain with weight bearing. 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 : None HEENT: None Psych: None Musculoskeletal: Other Derm: None - Past Surgical History Past Surgical History: Yes HEENT: Tonsil/Adenoidectomy - Present Medications Home Medications: Ambulatory Orders Medication Instructions Recorded Confirmed Hydrocodone/Acetaminophen 1 - 2 each PO Q6H PRN #14 tablet 07/20/18 [Hydrocodon-Acetaminophen 5-325] - Allergies Allergies/Adverse Reactions: Allergies Allergy/AdvReac Type Severity Reaction Status Date / Time erythromycin base Allergy Hives Verified 07/20/18 20:13 [Erythromycin Base] - Social History Does the pt smoke?: No Smoking Status: Never smoker Does the pt drink ETOH?: Yes Does the pt have substance abuse?: No - Immunizations Immunizations are current?: Yes - POLST Patient has POLST: No PD ED PE NORMAL - Vitals Vital signs reviewed: Yes (hypertensive ) - General General: Alert and oriented X 3, Well developed/nourished, Other (Appears to be in pain with supervisor pyrotechnic loading tone and flattened affect) - HEENT HEENT: Atraumatic, PERRL, EOMI - Respiratory Respiratory: No respiratory distress - Derm Derm: Normal color, Warm and dry, No rash - Extremities Extremities: Other (There is swelling and point tenderness over the proximal 5th metatarsal on the right and there is no tenderness to the malleoli and no restriction to plantar/dorsiflexion but significant pain to righting the foot. She prefers the foot rotated in. 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, No motor deficit, No sensory deficit, Normal speech Eye Opening: Spontaneous Motor: Obeys Commands Verbal: Oriented GCS Score: 15 - Psych Psych: Normal mood, Normal affect Results - Vitals Vitals: Vital Signs - 24 hr 07/20/18 20:09 Temperature 36.9 C Heart Rate 82 Respiratory 18 Rate Blood Pressure 134/76 H O2 Saturation 100 Oxygen O2 Source Room air - Rads (name of study) right foot Radiology: Prelim report reviewed (Impression: Mildly displaced fracture of the cuboid), EMP read indepedently, See rad report Procedures - Splint (location) right foot Splint applied by: Tech Type of splint: Fiberglass, Posterior Other: Patient tolerated well, No complications, Neurovascular intact, Good alignment, Crutches provided Departure - Departure Disposition: 01 Home, Self Care Clinical Impression: Fracture of cuboid of right foot Qualifiers: Encounter type: initial encounter Fracture type: closed Fracture alignment: displaced Qualified Code(s): S92.211A - Displaced fracture of cuboid bone of right foot, initial encounter for closed fracture Condition: Stable Instructions: ED Crutch Walking, ED Fx Foot Follow-Up: Laura Gong PA-C [Primary Care Provider] - [facility] [Provider Group] Prescriptions: Hydrocodone/Acetaminophen [Hydrocodon-Acetaminophen 5-325] 1 - 2 each PO Q6H PRN #14 tablet PRN Reason: pain Forms: Activity restrictions
--- NOTE | 2018-07-20 20:53 | XRAY Report ---
Reason: fall proximal 5th pain Procedure Date: 07/20/2018 Accession Number: [id number] / [id number] Procedure: XR - Foot 3 View RT CPT Code: FULL RESULT: EXAM: RIGHT FOOT RADIOGRAPHY EXAM DATE: 07/20/2018 08:40 PM. CLINICAL HISTORY: Fall proximal 5th pain. COMPARISON: FOOT 3 VIEW LT 12/29/2016 6:18 PM. TECHNIQUE: 3 views. FINDINGS: Bones: Lucency in the proximal lateral cuboid with 6 mm displacement is seen on the frontal view. Osseous structures otherwise intact. Joints: Normal. No subluxation. Soft Tissues: There is soft tissue swelling laterally. IMPRESSION: Mildly displaced fracture of the cuboid. RADIA
[2018-07-20] MEDS ORDERED: HYDROcod/ACET 5/325 Prepack 4 PO STA (21:03)
[2018-07-20 21:15] VITALS: BP 117/90
== END 2018-07-20 21:35 | disposition home or self-care (01) ==
LOC: ED 20:07
DX: S92.211A Displaced fracture of cuboid bone of right foot, initial encounter for closed fracture (principal); W10.9XXA Fall (on) (from) unspecified stairs and steps, initial encounter; Y93.89 Activity, other specified; Y92.009 Unspecified place in unspecified non-institutional (private) residence as the place of occurrence of the external cause
CPT/HCPCS: 29515; 73630; 99283; A9270

== ENCOUNTER 2018-07-30 12:31 | Outpatient (CLI) | payer BC, MEDICAID ==
--- NOTE | 2018-07-30 20:29 | CT Report ---
Reason: DISP FX OF CUBOID BONE OF R FOOT, SUBS FOR FX W RO Procedure Date: 07/30/2018 Accession Number: [id number] / [id number] Procedure: CT - LOWER EXTREMITY WO - RT CPT Code: FULL RESULT: EXAM: RIGHT FOOT CT WITHOUT CONTRAST EXAM DATE: 07/30/2018 01:09 PM. CLINICAL HISTORY: Right cuboid fracture. Question other fractures. COMPARISON: FOOT 3 VIEW RT 07/20/2018 8:29 PM. TECHNIQUE: Thin-section axial images were acquired of the foot without contrast. Post-processing: Coronal and sagittal reformats. Other: None. In accordance with CT protocol optimization, one or more of the following dose reduction techniques were utilized for this exam: automated exposure control, adjustment of mA and/or KV based on patient size, or use of iterative reconstructive technique. FINDINGS: Bones: There is a fracture of the superolateral margin of the cuboid with moderate lateral displacement and intra-articular extension involving the proximal articular surface. There is a smaller, minimally displaced fracture of the inferomedial cuboid, involving the fourth tarsometatarsal articular surface. The remaining tarsal bones appear intact. There are no visible metatarsal fractures. The ankle mortise and talus appear normal. Joints: The ankle and subtalar joints are normally positioned. Musculature: Normal. No fatty atrophy. Other: There is subcutaneous edema mainly over the lateral aspect of the ankle and hindfoot. IMPRESSION: 1. Fracture of both the proximal and distal poles of the cuboid both with intra-articular extension. There is mild displacement of the proximal fracture fragment, and minimal displacement of the distal fracture fragment. 2. The metatarsals and remaining tarsal bones appear intact. 3. Subcutaneous edema mainly over the lateral aspect of the ankle and foot. RADIA
== END 2018-07-30 12:32 | disposition home or self-care (01) ==
LOC: DI 12:31
PROVIDERS: ATTEND Orthopaedic Surgery
DX: S92.211D Displaced fracture of cuboid bone of right foot, subsequent encounter for fracture with routine healing (principal)

== ENCOUNTER 2018-08-01 20:22 | Emergency (ER) | payer BC, MEDICAID ==
[2018-08-01 20:28] VITALS: BP 126/87
--- NOTE | 2018-08-01 21:06 | ED Physician Documentation ---
History of Present Illness - Stated complaint Stated Complaint: RT FOOT BLISTERS - Chief complaint Chief Complaint: Ext Problem - Additonal information Additional information: 33-year-old female who recently broke her foot this week and is currently in a walking boot noticed a blister on the bottom of her foot today. The patient is nonweightbearing on that leg. The patient denies fevers or chills. Symptoms are described as mild. The blister is intact. 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 08/01/18 - Allergies Allergies/Adverse Reactions: Allergies Allergy/AdvReac Type Severity Reaction Status Date / Time erythromycin base Allergy Hives Verified 08/01/18 20:28 [Erythromycin Base] - Social History Does the pt smoke?: No Smoking Status: Never smoker Does the pt drink ETOH?: Yes Does the pt have substance abuse?: No - Immunizations Immunizations are current?: Yes - POLST Patient has POLST: No PD ED PE NORMAL - General General: Alert and oriented X 3, No acute distress - HEENT HEENT: Atraumatic, PERRL - Derm Derm: Other (The patient has a small blister on the Plantar surface, the bliste rs intact there is no erythema) - Extremities Extremities: Other (The right foot is in a walking boot, there is a small blister on the plantar surface. There is no other signs of secondary infection. The patient has normal dorsalis pedis pulse and normal cap refill) - Neuro Neuro: Alert and oriented X 3, Normal speech - Psych Psych: Normal affect Results - Vitals Vitals: Vital Signs - 24 hr 08/01/18 20:25 Temperature 36.5 C Heart Rate 72 Respiratory 18 Rate Blood Pressure 126/87 H O2 Saturation 100 Oxygen O2 Source Room air PD MEDICAL DECISION MAKING - ED course ED course: The patient has a fracture blister which is intact, I advised the patient to not disrupt the blister. I did give a prescription for Silvadene and advised to use it if the blister gets disrupted. The patient will otherwise follow-up with orthopedics for recheck Departure - Departure Disposition: 01 Home, Self Care Clinical Impression: Blister Condition: Good Instructions: ED Blister Follow-Up: Abdulaziz Farrar MD [Provider Admit Priv/Credential] - (as scheduled) Prescriptions: Silver Sulfadiazine [Silvadene] 1,000 gm TP BID 7 Days #1 cream..g. Comments: Please return for any worsening or any concerns
== END 2018-08-01 21:12 | disposition home or self-care (01) ==
LOC: ED 20:22
DX: S90.821A Blister (nonthermal), right foot, initial encounter (principal); X58.XXXA Exposure to other specified factors, initial encounter
CPT/HCPCS: 99283

== ENCOUNTER 2018-11-02 18:28 | Emergency (ER) | payer BC, MEDICAID ==
--- NOTE | 2018-11-02 22:15 | ED Physician Documentation ---
PD HPI HEENT - Stated complaint Stated Complaint: SINUS/HOT FLASH/CHILLS - Chief complaint Chief Complaint: General - History obtained from History obtained from: Patient - History of Present Illness Timing - onset: How many days ago (2) Timing - duration: Days Timing - details: Gradual onset Location: Sinuses Improves: Nothing Associated symptoms: Congestion. No: Fever (Tmax 99.7) Recently seen: Not recently seen - Additional information Additional information: mild URI symptoms x 1 week. chief c/o is 2 days of bilateral sinus congestion and pain, unable to breathe through nose, sweats/chills, post-nasal drip with cough Review of Systems Constitutional: reports: Chills, Sweats Ears: denies: Ear pain Nose: reports: Rhinorrhea / runny nose, Congestion, Sinus pressure / pain Throat: denies: Sore throat Respiratory: reports: Cough. 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 08/01/18 Amox/Clav 875/125 [Augmentin] 1 each PO Q12H #14 tablet 11/02/18 - Allergies Allergies/Adverse Reactions: Allergies Allergy/AdvReac Type Severity Reaction Status Date / Time erythromycin base Allergy Hives Verified 11/02/18 18:33 [Erythromycin Base] - Social History Does the pt smoke?: No Smoking Status: Never smoker Does the pt drink ETOH?: Yes Does the pt have substance abuse?: No - Immunizations Immunizations are current?: Yes - POLST Patient has POLST: No PD ED PE NORMAL - Vitals Vital signs reviewed: Yes - General General: Alert and oriented X 3, No acute distress, Well developed/nourished - HEENT HEENT: Moist mucous membranes, Pharynx benign - Neck Neck: Supple, no meningeal sign - Respiratory Respiratory: No respiratory distress, Clear bilaterally PD ED PE EXPANDED - HEENT HEENT: No: Right frontal sinus TTP, Left frontal sinus TTP Results - Vitals Vitals: Oxygen O2 Source Room air PD MEDICAL DECISION MAKING - ED course Complexity details: considered differential, d/w patient Departure - Departure Disposition: 01 Home, Self Care Clinical Impression: Sinusitis Qualifiers: Sinusitis location: maxillary Chronicity: acute Recurrence: non-recurrent Qualified Code(s): J01.00 - Acute maxillary sinusitis, unspecified Condition: Good Instructions: ED Sinusitis Abx Tx Follow-Up: Laura Gong PA-C [Primary Care Provider] - (4-5 days if not improving) Prescriptions: Amox/Clav 875/125 [Augmentin] 1 each PO Q12H #14 tablet Discharge Date/Time: 11/02/18 22:50
[2018-11-02] MEDS ORDERED: AMOX/CLAV 875 MG/125 MG TABLET PO STA (22:35)
[2018-11-02 22:50] VITALS: BP 111/71
== END 2018-11-02 22:50 | disposition home or self-care (01) ==
LOC: ED 18:28
DX: J01.00 Acute maxillary sinusitis, unspecified (principal)
CPT/HCPCS: 99283; A9270

== ENCOUNTER 2021-04-10 16:52 | Emergency (ER) | payer BC, MEDICAID ==
[2021-04-10 17:27] VITALS: BP 117/76
[2021-04-10] MEDS ORDERED: TETANUS/DIPHTHERIA/PERTUSSIS 0.5 ML SYRINGE IM ONE (18:11)
[2021-04-10] MEDS ORDERED: LIDOCAINE-EPINEPH-TETRACAINE 3 ML SYRINGE TOP STA (18:11)
--- NOTE | 2021-04-10 18:12 | ED Physician Documentation ---
PD HPI HEAD INJURY - Stated complaint Stated Complaint: HEAD LAC - Chief complaint Chief Complaint: Laceration - History obtained from History obtained from: Patient (35-year-old woman with unknown tetanus status had a board hit her in the head today and has a laceration on the scalp. No headache or loss of consciousness. 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 HEENT: None Psych: None Musculoskeletal: Other Derm: None - Past Surgical History Past Surgical History: Yes HEENT: Tonsil/Adenoidectomy - Present Medications Home Medications: Ambulatory Orders Medication Instructions Recorded Confirmed No Known Home Medications 04/10/21 04/10/21 - Allergies Allergies/Adverse Reactions: Allergies Allergy/AdvReac Type Severity Reaction Status Date / Time erythromycin base Allergy Hives Verified 04/10/21 17:27 [Erythromycin Base] - Social History Does the pt smoke?: No Smoking Status: Never smoker Does the pt drink ETOH?: Yes Does the pt have substance abuse?: No - Immunizations Immunizations are current?: Yes - POLST Patient has POLST: No PD ED PE NORMAL - Vitals Vital signs reviewed: Yes - General General: Alert and oriented X 3, No acute distress - HEENT HEENT: PERRL, EOMI, Other (1 cm laceration to the left side of the anterior scalp.) - Neck Neck: No bony TTP - Neuro Neuro: Alert and oriented X 3, 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, No motor deficit, No sensory deficit, Normal speech Eye Opening: Spontaneous Motor: Obeys Commands Verbal: Oriented GCS Score: 15 Results - Vitals Vitals: Vital Signs - 24 hr 04/10/21 17:20 Temperature 36.7 C Heart Rate 71 Respiratory 16 Rate Blood Pressure 117/76 O2 Saturation 97 Oxygen O2 Source Room air Procedures - Laceration (location) scalp L side Length in cm: 1 Wound type: Linear, Into subcut fat Anesthesia: LET Wound preparation: Irrigated copiously NS Skin layer closure: Finn (x1) Other: Patient tolerated well, No complications, Neurovascular intact, Tetanus booster given Departure - Departure Disposition: 01 Home, Self Care Clinical Impression: Scalp laceration Qualifiers: Encounter type: initial encounter Qualified Code(s): S01.01XA - Laceration without foreign body of scalp, initial encounter Condition: Good Record reviewed to determine appropriate education?: Yes Instructions: ED Laceration Scalp Stitch Or Stap Comments: Staple needs to come out in a week to 10 days, return or go to urgent care or follow-up with your primary care physician for same. Return for new or worsening symptoms.
== END 2021-04-10 18:41 | disposition home or self-care (01) ==
LOC: ED 16:52
DX: S01.01XA Laceration without foreign body of scalp, initial encounter (principal); W22.8XXA Striking against or struck by other objects, initial encounter
CPT/HCPCS: 12001; 90471; 99282; 99283

== ENCOUNTER 2021-06-02 20:34 | Emergency (ER) | payer BC, MEDICAID ==
--- NOTE | 2021-06-02 20:40 | ED Physician Documentation ---
PD HPI UPPER EXT INJURY - Stated complaint Stated Complaint: R MID FINGER INJ - History obtained from History obtained from: Patient - History of Present Illness Location: Right, Finger (middle) Type of injury: Crush Where injury occurred: Home Timing - onset: Enter time (18:30), Today Timing - details: Abrupt onset Pain level now: 2 Improved by: Rest Worsened by: Moving, Palpating Associated symptoms: No: Weakness, Numbness, Swelling, Discolored Recently seen: Not recently seen - Additonal information Additional information: at approximately 2:30 PM today, patient was holding her screen door open when a leslie of wind forcibly closed the door on her right middle finger. She c/o pain right middle finger at tip. She is left hand dominant Review of Systems Musculoskeletal: reports: Extremity pain. 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 : None HEENT: None Psych: None Musculoskeletal: Other Derm: None - Past Surgical History Past Surgical History: Yes General: Appendectomy HEENT: Tonsil/Adenoidectomy - Present Medications Home Medications: Ambulatory Orders Medication Instructions Recorded Confirmed No Known Home Medications 04/10/21 06/02/21 - Allergies Allergies/Adverse Reactions: Allergies Allergy/AdvReac Type Severity Reaction Status Date / Time erythromycin base Allergy Hives Verified 06/02/21 20:45 [Erythromycin Base] - Social History Does the pt smoke?: No Smoking Status: Never smoker Does the pt drink ETOH?: Yes Does the pt have substance abuse?: No - Immunizations Immunizations are current?: Yes - POLST Patient has POLST: No PD ED PE NORMAL - Vitals Vital signs reviewed: Yes - General General: Alert and oriented X 3, No acute distress, Well developed/nourished - Neuro Neuro: No motor deficit (FROM and strength right middle finger, both extension and flexion (with flexion testing including isolation of PIP, DIP joints)), No sensory deficit (LTS intact at tip of right middle finger) PD ED PE EXPANDED - Extremities Extremities: Tenderness (TTP right middle finger distal phalanx without brusing or swelling). No: Deformity Results - Vitals Vitals: Vital Signs - 24 hr 06/02/21 20:41 Temperature 36.5 C Heart Rate 76 Respiratory 18 Rate Blood Pressure 125/84 H O2 Saturation 98 Oxygen O2 Source Room air - Rads (name of study) right middle finger xrays Radiology: Prelim report reviewed, See rad report PD MEDICAL DECISION MAKING - ED course Complexity details: reviewed results, re-evaluated patient, considered differential, d/w patient ED course: crush injury to right middle finger without abnormality on xrays. Splint placed for comfort and to protect the finger from incidental contact until pain subsides. Departure - Departure Disposition: 01 Home, Self Care Clinical Impression: Crush injury to finger Condition: Good Instructions: ED Crush Injury Finger No Fx Follow-Up: Laura Gong PA-C [Primary Care Provider] - Comments: You do not need to follow up if you are healing appropriately. Expect the swelling and pain to worsen in the first 2-3 days, then there should be steady, daily improvement. You can follow up with your primary care provider if you want to be reevaluated, but I would recommend you do so if your symptoms vary from the typical course of injury as above. Also, you need to follow up with your primary care provider if you find that you have weakness/limitation in range of motion that is independent of pain/swelling. There is no evidence of fracture on the xrays. Discharge Date/Time: 06/02/21 21:52
[2021-06-02 20:45] VITALS: BP 125/84
--- NOTE | 2021-06-02 21:29 | XRAY Report ---
PROCEDURE: Finger(s) RT INDICATIONS: crush injury TECHNIQUE: AP hand, 2 views of the third digit acquired. COMPARISON: None. FINDINGS: Bones: No fractures or dislocations. There is slight hyperextension of the third distal interphalan geal joint. No suspicious bony lesions. Soft tissues: No suspicious soft tissue calcifications. IMPRESSION: 1. No fracture or dislocation. 2. Slight hyperextension of the third DIP joint. Reviewed by: Roverto Quezada MD on 06/02/2021 9:28 PM [facility] Approved by: Roverto Quezada MD on 06/02/2021 9:28 PM [facility] Station ID: [id number]
== END 2021-06-02 21:52 | disposition home or self-care (01) ==
LOC: ED 20:34
DX: S67.192A Crushing injury of right middle finger, initial encounter (principal); W23.1XXA Caught, crushed, jammed, or pinched between stationary objects, initial encounter; Y92.009 Unspecified place in unspecified non-institutional (private) residence as the place of occurrence of the external cause
CPT/HCPCS: 99282; 99283

== ENCOUNTER 2022-03-24 21:09 | Emergency (ER) | payer BC, MEDICAID ==
[2022-03-24 21:34] VITALS: BP 114/70
[2022-03-24] MEDS ORDERED: BACITRACIN ZINC OINT 1 PACKET TOP STA (21:39)
--- NOTE | 2022-03-24 21:41 | ED Physician Documentation ---
History of Present Illness - Stated complaint Stated Complaint: LT HAND/FINGER LAC - Chief complaint Chief Complaint: Laceration - Additonal information Additional information: 36-year-old female who is left-hand dominant presents the emergency department for evaluation of a laceration/abrasion sustained yesterday when using a switch box installer. She has an a deeper abrasion to the radial side of her distal index finger. She has had to change the bandage 3 times today due to bleeding thus she presents here. Tetanus up-to-date within the last year. Review of Systems Constitutional: reports: Reviewed and negative Nose: reports: Reviewed and negative Cardiac: reports: Reviewed and negative Respiratory: reports: Reviewed and negative Skin: reports: Laceration (s) PD PAST MEDICAL HISTORY - Past Medical History Cardiovascular: None Respiratory: None Neuro: None Endocrine/Autoimmune: None GI: None ARTISTS' MODEL: None : None HEENT: None Psych: None Musculoskeletal: Other Derm: None - Past Surgical History Past Surgical History: Yes General: Appendectomy HEENT: Tonsil/Adenoidectomy - Present Medications Home Medications: Ambulatory Orders Medication Instructions Recorded Confirmed Lisdexamfetamine Dimesylate 1 tab PO DAILY 03/24/22 03/24/22 [Vyvanse] - Allergies Allergies/Adverse Reactions: Allergies Allergy/AdvReac Type Severity Reaction Status Date / Time erythromycin base Allergy Hives Verified 03/24/22 21:33 [Erythromycin Base] - Social History Does the pt smoke?: No Smoking Status: Never smoker Does the pt drink ETOH?: Yes Does the pt have substance abuse?: No - Immunizations Immunizations are current?: Yes - POLST Patient has POLST: No PD ED PE EXPANDED - Extremities Extremities: Left finger(s) (0.3 cm superficial laceration/abrasion distal tip left index finger Radial side. No active bleeding. NVI) Results - Vitals Vitals: Vital Signs - 24 hr 03/24/22 21:30 Temperature 36.5 C Heart Rate 83 Respiratory 18 Rate Blood Pressure 114/70 O2 Saturation 100 Oxygen O2 Source Room air PD MEDICAL DECISION MAKING - ED course Complexity details: d/w patient ED course: 36-year-old female [id number] who has up-to-date tetanus presents with a deeper abrasion/laceration to the distal tip of her left index finger sustained when using a switch box installer yesterday evening. This is not a wound that is amenable to primary closure with sutures. There is no active bleeding at the time of my exam. I did make the general recommendation for gentle cleansing with warm soap water twice daily, patting dry and then application of antibiotic ointment and Band-Aid. Return precautions discussed for concerns of infection. Departure - Departure Disposition: 01 Home, Self Care Clinical Impression: Laceration of left index finger Qualifiers: Encounter type: initial encounter Damage to nail status: without damage Foreign body presence: without foreign body Qualified Code(s): S61.211A - Laceration without foreign body of left index finger without damage to nail, initial encounter Condition: Stable Record reviewed to determine appropriate education?: Yes Instructions: ED Abrasion Comments: Jennifer the abrasion/laceration on your finger is something that will simply have to heal with time from inside out. These deeper abrasion like cuts will typically bleed a little more than a more typical laceration would. In general I would like you to wash your finger with warm soapy water twice daily then pat dry and apply a thin layer of bacitracin or Polysporin ointment. I would expect this laceration to heal well over the next 7 to 10 days. Return to the ER if you have any concerns of infection
== END 2022-03-24 21:48 | disposition home or self-care (01) ==
LOC: ED 21:09
DX: S61.211A Laceration without foreign body of left index finger without damage to nail, initial encounter (principal); W27.8XXA Contact with other nonpowered hand tool, initial encounter
CPT/HCPCS: 99281; 99282

== ENCOUNTER 2023-06-11 08:00 | Outpatient (CLI) | payer BC, MEDICAID | END 2023-06-11 23:59 | disposition home or self-care (01) | LOC: LAB.WCP 08:00 | PROVIDERS: ATTEND Physician Assistant Medical | DX: L20.9 Atopic dermatitis, unspecified (principal) | CPT/HCPCS: 87070; 87181; 87205 ==